=== PATIENT | male | born 1935 | race Caucasian/White ===

== ENCOUNTER 2021-07-11 11:13 | Outpatient (REF) | payer MEDICARE, OTHER, SELFPAY ==
--- NOTE | ~2021-07-11 | XR_ITS ---
EXAMINATION: XR CHEST CLINICAL INFORMATION: Cough and fever COMPARISON: 10/03/2006 TECHNIQUE: 2 views of the chest were obtained. FINDINGS: The heart and mediastinum are normal in appearance. Suggestion of subtle patchy opacities in both mid lungs and a few streaky markings at the lower lobes. No dominant consolidation or pleural effusion. XR/XR chest 2V IMPRESSION: 1. Subtle patchy opacities suspected in the mid lungs bilaterally. This could reflect subtle acute pulmonary process such as viral/atypical infection including covid 19 pneumonia. Alternatively, some of these changes could reflect chronic changes including pleural plaques. Recommend reassessment on follow-up. 2. No dominant consolidation.
[2021-07-11 11:44] LABS: MANUAL DIFF FLAG NO
[2021-07-11 12:18] LABS: Basophils Percent Auto 0.3 % (0-2); Eosinophils Percent Auto 0.3 % (0-4); Hematocrit 38.8 % (42.0-52.0); Hemoglobin 12.7 g/dl (14.0-18.0); Imm Gran Abs Auto 0.04 X10*3/uL (0.00-0.03); Imm Gran Pct Auto 0.4 % (0.0-0.4); Lymphocytes Absolute Auto 0.5 X10*3/uL (1.2-4.9); Lymphocytes Percent Auto 5.3 % (20-40); Mean Corpuscular HGB Conc 32.7 g/dl (31.0-36.0); Mean Corpuscular Hemoglobin 29.7 pg (27.0-33.0); Mean Corpuscular Volume 90.9 fL (80.0-98.0); Mean Platelet Volume 9.8 fL (9.4-12.4); Monocytes Percent Auto 10.5 % (2-11); Neutrophils Absolute Auto 7.7 x10*3/uL (2.0-8.3); Neutrophils Percent Auto 83.2 % (45-73); Platelet Count 195 X10*3/uL (160-400); Red Blood Count 4.27 X10*6/uL (4.60-5.80); Red Cell Distribution Width 13.5 % (11.0-16.0); White Blood Count 9.2 X10*3/uL (4.8-10.8)
[2021-07-11 12:46] LABS: Appearance Urine CLEAR; Color Urine YELLOW; Glucose Urine UA NEG (NEG); Leukocyte Esterase Urine NEG (NEG); Nitrite Urine NEG (NEG); Specific Gravity - Urine 1.015 (1.005-1.025); Urine Blood TRACE (NEG); Urine Ketones 5 MG/DL (NEG); Urine Protein TRACE MG/DL (NEG-TRACE)
== END 2021-07-11 11:14 | disposition home or self-care (01) ==
LOC: HO.XRAY 11:13
PROVIDERS: PCP Internal Medicine; Visit Provider Nurse Practitioner Primary Care
DX: R05.9 Cough, unspecified (principal); R50.9 Fever, unspecified
CPT/HCPCS: 36415; 71046; 81001; 85025; 87086